=== PATIENT | female | born 1950 | race Caucasian/White ===

== ENCOUNTER → 2022-07-05 15:32 | Outpatient (BNVA) | payer MEDICARE, SELFPAY | PROVIDERS: PCP Pediatrics; Visit Provider Internal Medicine Cardiovascular Disease | DX: R07.89 Other chest pain (principal) | CPT/HCPCS: 99202 ==

== ENCOUNTER → 2022-07-24 14:06 | Outpatient (REF) | payer MEDICARE, SELFPAY ==
--- NOTE | 2022-07-24 14:12 | CA_ITS ---
Acquisition Time: 2022-07-24 14:19:39 Total Exercise Time: 00:02:17 Test Indications: CHEST PAIN Medications: Protocol: VU Max HR: 136 BPM 93% of Pred: 146 BPM Max BP: 180/060 mmHG Max Work Load: 4.1 METS Exercise stress test with exercise 2 min 17 sec of Vu stage 1 with speed reduced to 1.5 MPH, with repo isolated PAC, PVCs, and short runs of atrial tachycardia, with normotensive response to exercise, with nondiagnostic EKG for ischemia due to suboptimal test. In recovery her breathing normalized. Test reviewed with Dr Anderson. Pharmacological nuclear stress test ordered for further evaluation. Referred By: James Anderson Overread By: James Anderson
== END ==
LOC: HO.CARD 14:06
PROVIDERS: Visit Provider Internal Medicine Cardiovascular Disease
DX: R07.89 Other chest pain (principal)
CPT/HCPCS: 93017

== ENCOUNTER → 2022-08-08 09:04 | Outpatient (REF) | payer MEDICARE, SELFPAY ==
--- NOTE | ~2022-08-08 | NM_ITS ---
Myocardial perfusion study Indication: Abnormal stress test evaluate for myocardial ischemia Technique: The patient was brought in for a Lexiscan perfusion study on 08/08/2022. Patient performed low-level exercise and was injected 0.4 mg of Lexiscan intravenously. Within a minute of injection, 30 mCi of sestamibi was given intravenously. Images were obtained using the SPECT gamma camera interlaced with the gating device. Images were obtained in supine position. Resting perfusion study was performed on 08/09/2022. Patient was administered 30 mCi of sestamibi intravenously at rest. Images were then obtained in supine position. Images obtained with and without CT attenuation. Total DLP 96 mGy-cm. Images were processed with the software and compared side to side in short axis, horizontal long axis and vertical long axis views. Findings: The stress perfusion study showed non attenuated images show normal uptake of radiotracer in all segments of LV myocardium. Attenuation corrected images show mildly reduced uptake in the apex of the LV myocardium.. The gated study shows normal LV systolic function with calculated LVEF of 74%. LV cavity is normal in size. The gated study shows normal systolic wall thickening and contraction of segments. Resting study shows no change in perfusion pattern compared to stress perfusion study. Gating at rest reveals normal systolic wall motion with ejection fraction at 71%. The findings are consistent with normal myocardial perfusion. NM/NM cardiolite stress test Impression: 1. Myocardial perfusion imaging study shows normal myocardial perfusion 2. Gated LVEF is 74% 3. Transient ischemic dilatation not present EKG is nondiagnostic for ischemia
--- NOTE | 2022-08-08 09:06 | CA_ITS ---
Acquisition Time: 2022-08-08 09:20:24 Total Exercise Time: 00:02:00 Test Indications: CHEST PAIN SOB Medications: LOSATAN Protocol: LEXISCAN Max HR: 096 BPM 65% of Pred: 146 BPM Max BP: 144/090 mmHG Max Work Load: 1.0 METS Pharmacological stress test with Lexiscan injection while sitting and kicking her legs, without anginal symptoms, without arrhythmias, with normotensive response to injection, without EKG changes. Aminophylline 75mg IVP given to reverse Lexiscan injection. Nuclear images pending. Test reviewed with Dr. Blanco. Referred By: Alexa Chery Overread By: ALEXA CHERY
== END ==
LOC: HO.CARD 09:04
PROVIDERS: PCP Pediatrics; Visit Provider Nurse Practitioner Family
DX: R07.89 Other chest pain (principal); R06.02 Shortness of breath; R94.39 Abnormal result of other cardiovascular function study
CPT/HCPCS: 78452; 93017; A9500; J0280; J2785

== ENCOUNTER 2024-05-17 17:02 | Inpatient (IN) | payer MEDICARE, SELFPAY ==
--- NOTE | ~2024-05-17 | CT_ITS ---
CLINICAL HISTORY: diarrhea, abd bloating pain CT abdomen and pelvis with contrast Comparison: None Findings: No consolidation or effusion. There is marked abnormal thickening of the rectum with surrounding stranding of the distal sigmoid and rectum. No bowel obstruction or free air. Normal appendix. The liver, spleen, adrenal glands and pancreas demonstrate no acute process. Duodenal diverticulum noted. Kidneys, ureters and bladder demonstrate no acute process. Moderate diffuse atherosclerotic disease. The gallbladder is surgically absent. Uterus not visualized. No acute osseous finding. Impression: There is pronounced abnormal thickening of the rectum with significant surrounding stranding. While proctitis is likely, this will need to be closely followed to exclude malignancy. No free air or abscess. This document has been electronically signed by: Leonides Murrell MD on 05/17/2024 19:36:34
--- NOTE | 2024-05-17 17:14 | ED_ITS ---
HPI - Abdominal Pain General Chief Complaint: Abdominal Pain Stated Complaint: diarrhea, abd pain x4 days Time Seen by Provider: 05/17/24 17:14 Source: patient Mode of arrival: ambulatory Limitations: no limitations History of Present Illness ED Provider: KARO SUTTON PA-C HPI narrative: 74 year old female with pmhx significant for HTN and GERD present to the ED for evaluation of nausea, diarrhea, and abdominal pain x5 days. Patient reports feeling generally ill 5 days ago with subjective fever, chills and nausea without vomiting. The following morning, patient began to experience explosive diarrhea. She reports over 12 episodes of non bloody loose stools per day since this time. She currently lives home alone and feels weak. She is having difficulty getting up various times day/night to pass BM. No recent travel outside the [place]. She admits that she was on a course of antibiotics approximately 2 months ago for dental abscess. No other antibiotics. No known sick contacts. Surgical history includes cholecystectomy and hernia mesh repair. Denies hx of diverticulitis Related Data Home Medications ?Medication ?Instructions ?Recorded ?Confirmed ascorbic acid (vitamin C) 500 mg 1,000 mg PO DAILY 07/05/22 05/18/24 capsule doxazosin 4 mg tablet 8 mg PO BEDTIME 07/05/22 05/18/24 folic acid 800 mcg tablet 0.8 mg PO DAILY 07/05/22 05/18/24 hydralazine 50 mg tablet 50 mg PO TID 07/05/22 05/18/24 ibuprofen 800 mg tablet 800 mg PO DAILY PRN Pain 07/05/22 05/18/24 losartan 100 mg tablet 100 mg PO DAILY@0900 07/05/22 05/18/24 losartan 50 mg tablet 50 mg PO BEDTIME 07/05/22 05/18/24 magnesium 250 mg tablet 500 mg PO BEDTIME 07/05/22 05/18/24 omeprazole 20 mg capsule,delayed 20 mg PO DAILY@0630 07/05/22 05/18/24 release pyridoxine (vitamin B6) 100 mg 100 mg PO DAILY 07/05/22 05/18/24 tablet acetaminophen 500 mg tablet 1,000 mg PO BID PRN Pain 05/18/24 05/18/24 Allergies Allergy/AdvReac Type Severity Reaction Status Date / Time aspirin Allergy Intermediate Unknown Verified 05/17/24 17:19 doxycycline Allergy Intermediate Unknown Verified 05/17/24 17:19 levofloxacin Allergy Intermediate Unknown Verified 05/17/24 17:19 tramadol Allergy Intermediate Unknown Verified 05/17/24 17:19 cefadroxil Allergy Mild Unknown Verified 05/17/24 17:19 diltiazem Allergy Mild Unknown Verified 05/17/24 17:19 gabapentin Allergy Mild Unknown Verified 05/17/24 17:19 metronidazole Allergy Mild Unknown Verified 05/17/24 17:19 nifedipine Allergy Mild Unknown Verified 05/17/24 17:19 spironolactone Allergy Mild Unknown Verified 05/17/24 17:19 hydrochlorothiazide Allergy Unknown Verified 05/17/24 17:19 statins AdvReac Mild Unknown Uncoded 07/05/22 16:01 Review of Systems Review of Systems Constitutional: No fever, chills, fatigue, night sweats, weight changes ENT/Mouth: No ear pain, hearing loss, nasal congestion, sinus pain, rhinorrhea, sore throat Eyes: No eye pain, swelling, redness, vision changes, discharge Cardio: No chest pain, palpitations, ALCAZAR, orthopnea, peripheral edema Pulm: No SOB, cough, sputum, wheezing, dyspnea, hemoptysis GI: No vomiting, hematemesis, constipation, hematochezia, melena, +abdominal pain, +diarrhea, +nausea : No irregular bleeding, dysuria, frequency, urgency, hesitancy, hematuria, flank pain, urinary flow changes, urinary incontinence or retention MSK: No back pain, neck pain, joint pain, myalgias Skin: No lesions, rashes Neuro: No weakness, numbness, paresthesias, LOC, dizziness, headache Psych: No anxiety/panic, depression, SI/HI, AH/VH All other systems reviewed and are negative. [facility] Past Medical History Attestation statement: The following information was validated with the patient. Source: old records reviewed and nursing notes reviewed Medical History (Updated 05/18/24 @ 11:46 by WESTON Mcdonald) Seasonal affective disorder GERD (gastroesophageal reflux disease) Essential hypertension Surgical History History of breast surgery Hx of cholecystectomy History of hysterectomy History of abdominal surgery Family History Family History Mother Lung cancer Brain aneurysm Angina pectoris Father No problems noted. Sister AML (acute myeloblastic leukemia) Sister Heart disease Lung disease Social History Social History Alcohol intake: current Alcohol intake frequency: does not drink Patient Tobacco Use Status: Never used Tobacco Smoked in Last 30 Days: No Use of substances other than those prescribed or required for medical reasons: No Advance Directives: No Advance Directives Information Provided: Yes Do you have a plan to hurt others: No Plan Nutrition Risks: No Nutritional Risk service: No Physical Exam ED Vital Signs: Vital Signs - 24 hr 05/17/24 17:19 05/17/24 18:18 05/17/24 19:53 Temperature 99.7 F 97.3 F 97.9 F Pulse Rate 81 72 79 Respiratory Rate 16 18 16 Blood Pressure 95/49 L 136/47 L 139/49 L Pulse Oximetry 98 96 96 Oxygen Delivery Method Room Air Room Air Room Air BMI result Body Mass Index 35.0 vital signs stable, afebrile General: Well appearing, in no acute distress. Skin: Warm, dry, intact. No rashes or lesions. Head: Normocephalic, atraumatic. EENT: Hearing is intact b/l. Conjunctiva clear. PERRLA. EOM intact. Moist mucous membranes.? Neck: Supple without LAD Cardiac: Chest wall symmetric. RRR. Lungs: Normal respiratory effort without accessory muscle use. CTA bilaterally. Abdomen: soft, distended, mildly ttp along lower abdomen without rebound or guarding. normoactive bs. No cvat. Back: No midline spinous or paraspinal tenderness. No step off deformity. Ext: Upper and lower extremities atraumatic, without tenderness, deformity, swelling or erythema. strength 4/5 throughout. Neuro: AOx3. Normal speech. Ambulating with slow but steady gait assisted by cane. Course Course Course Narrative: CBC showing leukocytosis to 20.2 with left shift. Normocytic anemia. H&H stable and above transfusion threshold. No priors to compare to. Chemistry without acute electrolyte abnormality requiring intervention. BUN elevated at 20 with normal creatinine. Transaminitis. Alk phos 202, ALT 52 and AST 50. Lipase WNL. Negative COVID, flu, RSV. CT abdomen/pelvis showing marked abnormal thickening of the rectum with surrounding stranding of the distal sigmoid and rectum. No bowel obstruction, free air or abscess. > I did discuss work up results with patient. will discuss admission to medicine for IV antibiotic therapy. patient amenable to this. receiving 1L IVF. > patient reports passing bowel movement in the ED. Bowel movement was combined with urine and the sample was not sent to lab for evaluation. Will await new sample for GI panel/C diff testing. 2100 -- Discussed case with hospitalist Dr. Nunn. given generalized weakness d/t multiple episodes of loose stools with proctitis on imaging, patient will be admitted to medicine for continued IV anitbiotics. Patient has various allergies to antibiotics. Would prefer regimen of ceftriaxone and Flagyl however patient tells me she has not anaphylactic reaction to Flagyl. Discussed care with hospitalist. Will place patient on Zosyn for the time being, pending stool samples. Medical Decision Making Medical Decision Making [facility] Narrative: 74 year old female with pmhx significant for HTN and GERD present to the ED for evaluation of nausea, diarrhea, and abdominal pain x5 days. vital signs notable for low grade temp of 99.7F. she is nontoxic appearing and in NAD. on exam, soft, distended, mildly ttp along lower abdomen without rebound or guarding. normoactive bs. No cvat. Differential diagnosis includes gastroenteritis, diverticulitis, diverticulosis, cdiff, colitis No evidence of acute abdomen at this time. Moderate suspicion for acute hepatobiliary disease (including acute cholecystitis). Less likely to represent acute pancreatitis, PUD (including perforation), acute infectious processes (pneumonia, hepatitis, pyelonephritis), atypical appendicitis, vascular catastrophe, bowel obstruction or viscus perforation. Presentation not consistent with other acute, emergent causes of abdominal pain at this time. Plan: labs, UA, IVF, CT a/p, serial reassessment Differential Diagnosis Differential Diagnoses: The differential diagnosis associated with the presentation includes as above. Admission/Observation Consideration of admission/observation: Escalation of care including admission/observation considered Patient admitted to medicine for proctitis with likely c diff Consult Healthcare Provider Management of the patient was discussed with: Hospitalist (Dr. Nunn) Lab Data [facility] Lab Attestation statement: I reviewed the patient's lab results. as above. 05/17/24 17:33 05/17/24 17:33 Labs: Lab Results 05/17/24 Range/Units 17:33 WBC 20.2 H (4.8-10.8) X10*3/uL RBC 3.77 L (4.20-5.50) X10*6/uL Hgb 11.7 L (12.0-16.0) g/dl Hct 33.9 L (37.0-47.0) % MCV 89.9 (80.0-98.0) fL MCH 31.0 (27.0-33.0) pg MCHC 34.5 (31.0-35.0) g/dl RDW 12.1 (11.0-16.0) % Plt Count 282 (160-400) X10*3/uL MPV 10.4 (9.4-12.3) fL Immature Gran % (Auto) 0.7 H (0.0-0.4) % Neut % (Auto) 88.2 H (45-73) % Lymph % (Auto) 3.7 L (20-40) % [place] % (Auto) 7.3 (2-11) % Eos % (Auto) 0.0 (0-4) % Baso % (Auto) 0.1 (0-2) % Lymph # (Auto) 0.7 L (1.2-4.9) X10*3/uL [place] # (Auto) 1.5 H (0.1-1.2) X10*3/uL Eos # (Auto) 0.0 (0.0-0.4) X10*3/uL Baso # (Auto) 0.0 (0.0-0.2) X10*3/uL Abs Immat Gran (auto) 0.15 H (0.00-0.03) X10*3/uL Absolute Neuts (auto) 17.8 H (2.0-8.3) x10*3/uL Absolute Nucleated RBC 0.000 (0.0-0.012) X10*3/uL Nucleated RBC % (auto) 0.0 (0.0-0.2) /100WBC Sodium 136 (135-145) mmol/L Potassium 3.7 (3.3-5.1) mmol/L Chloride 105 (96-108) mmol/L Carbon Dioxide 24 (22-29) mmol/L Anion Gap 11 L (12-20) BUN 20 H (9-16) mg/dL Creatinine 0.88 (0.5-1.4) mg/dL Estim Creat Clear Calc 57.8 Estimated GFR > 60 Random Glucose 109 (60-115) mg/dL Calcium 10.1 (8.4-10.2) mg/dL Magnesium 1.8 (1.6-2.6) mg/dL Total Bilirubin 1.0 (0.0-1.0) mg/dL AST 50 H (5-31) U/L ALT 52 H (0-31) U/L Alkaline Phosphatase 202 H (39-117) U/L Total Protein 6.6 (6.5-8.0) g/dL Albumin 3.6 (3.5-5.0) g/dL Lipase 26 (8-78) U/L Influenza Type A (PCR) NEGATIVE (Negative) Influenza Type B (PCR) NEGATIVE (Negative) RSV RNA Qual (PCR) NEGATIVE (Negative) SARS-CoV-2 RNA (RT-PCR) NEGATIVE (Negative) Independent Interpretation I performed an independent interpretation of an: CT Scan Interpretation: CT a/p with stranding around sigmoid colon Radiology Impression Discussion of test interpretation with radiology: I have reviewed the radiologist's reading. Radiologist Impression: CLINICAL HISTORY: diarrhea, abd bloating pain CT abdomen and pelvis with contrast Comparison: None Findings: No consolidation or effusion. There is marked abnormal thickening of the rectum with surrounding stranding of the distal sigmoid and rectum. No bowel obstruction or free air. Normal appendix. The liver, spleen, adrenal glands and pancreas demonstrate no acute process. Duodenal diverticulum noted. Kidneys, ureters and bladder demonstrate no acute process. Moderate diffuse atherosclerotic disease. The gallbladder is surgically absent. Uterus not visualized. No acute osseous finding. Impression: There is pronounced abnormal thickening of the rectum with significant surrounding stranding. While proctitis is likely, this will need to be closely followed to exclude malignancy. No free air or abscess. This document has been electronically signed by: Leonides Murrell MD on 05/17/2024 19:36:34 External Record Review External record reviewed: Inpatient record Prescription Management I considered prescription management with: Pain Medication and Antibiotic Social Determinants Patient?s care significantly limited by Social Determinants of Health including: Other Social Determinant of Health Medications Administered Generic Name Dose Route Start Last Admin Trade Name Freq PRN Reason Stop Dose Admin Acetaminophen 650 mg 05/17/24 22:20 05/18/24 09:07 Acetaminophen 325 Mg Tablet PO 650 mg Q6H PRN Administration Pain, Mild 1-3,fever,headache Ascorbic Acid 1,000 mg 05/18/24 10:45 05/18/24 11:15 Ascorbic Acid 500 Mg Tablet PO 1,000 mg DAILY TAMELA Administration Enoxaparin Sodium 40 mg 05/17/24 21:45 05/18/24 02:52 Enoxaparin Sodium 40 Mg/0.4 Ml Syringe SUBCUT 40 mg Q24H TAMELA Administration Lactated Ringer's 1,000 mls @ 100 mls/hr 05/17/24 22:15 05/18/24 08:28 Lr IVCONT 100 mls/hr .Q10H TAMELA Administration Losartan Potassium 100 mg 05/18/24 10:35 05/18/24 11:14 Losartan Potassium 50 Mg Tablet PO Not Given DAILY@0900 [facility] Protocol Sodium Chloride 3 ml 05/18/24 00:00 05/18/24 08:28 0.9 % Sodium Chloride Flush 3 Ml Syringe IVFLUSH 3 ml QSHIFT [facility] Administration Vancomycin HCl 125 mg 05/17/24 22:45 05/18/24 10:40 Vancomycin Hcl 125 Mg Capsule PO 125 mg Q6H TAMELA Administration Discontinued Medications Generic Name Dose Route Start Last Admin Trade Name Freq PRN Reason Stop Dose Admin Enoxaparin Sodium 40 mg 05/17/24 21:30 05/17/24 23:41 Enoxaparin Sodium 40 Mg/0.4 Ml Syringe SUBCUT Not Given Q24H [facility] Sodium Chloride 1,000 mls @ 999 mls/hr 05/17/24 19:45 05/17/24 21:23 Ns IV 05/17/24 20:45 Infused .Q1H1M TAMELA Infusion Piperacillin Sod/Tazobactam 50 mls @ 100 mls/hr 05/17/24 20:23 05/17/24 21:53 Sod 3.375 gm/ Sodium Chloride IV 05/17/24 20:52 Infused ONCE ONE Infusion Iohexol 100 ml 05/17/24 19:00 05/17/24 19:02 Iohexol 350 Mg/Ml 100 Ml Infus..Btl IV 05/17/24 19:01 85 ml ONCE ONE Administration Critical Care Time Critical Care Time Critical Care Time: Yes Total Critical Care Time: 31 Attestation: Critical care time in the amount of 31 minutes has been provided to the patient in terms of direct patient care, frequent reevaluation, consultation with hospitalist, review and interpretation of medical data and results, and management of potentially life-threatening conditions. This is all outside of any medical procedures. Discharge Plan Discharge Clinical Impression: Acute proctitis, C. difficile diarrhea Patient Disposition: Admitted As Inpatient
[2024-05-17 17:19] VITALS: BP 95/49; PULSE 81; RESP 16; TEMP 37.6; O2SAT 98; BMI 35.0
[2024-05-17 17:37] LABS: MANUAL DIFF FLAG NO
[2024-05-17 17:38] LABS: Basophils Percent Auto 0.1 % (0-2); Hematocrit 33.9 % (37.0-47.0); Hemoglobin 11.7 g/dl (12.0-16.0); Imm Gran Abs Auto 0.15 X10*3/uL (0.00-0.03); Imm Gran Pct Auto 0.7 % (0.0-0.4); Lymphocytes Absolute Auto 0.7 X10*3/uL (1.2-4.9); Lymphocytes Percent Auto 3.7 % (20-40); Mean Corpuscular HGB Conc 34.5 g/dl (31.0-35.0); Mean Corpuscular Volume 89.9 fL (80.0-98.0); Mean Platelet Volume 10.4 fL (9.4-12.3); Monocytes Absolute Auto 1.5 X10*3/uL (0.1-1.2); Monocytes Percent Auto 7.3 % (2-11); Neutrophils Absolute Auto 17.8 x10*3/uL (2.0-8.3); Neutrophils Percent Auto 88.2 % (45-73); Platelet Count 282 X10*3/uL (160-400); Red Blood Count 3.77 X10*6/uL (4.20-5.50); Red Cell Distribution Width 12.1 % (11.0-16.0); White Blood Count 20.2 X10*3/uL (4.8-10.8)
--- OUTSIDE RECORDS SUMMARY | 2024-05-17 17:39 | XMS_ITS | Clinical Summary ---
Author Organization [facility], Address [address] [place] [address] [place] [address] Phone Care Team Providers Care Returning Officer Name Role Phone Noe Peter MD Primary Care Provider [phone] Allergies Active Allergy Reactions Criticality Noted Date Comments Amitriptyline 02/25/2020 Amlodipine Other (see comments) Medium 02/25/2020 Aspirin 07/14/2013 Cefadroxil 02/25/2020 Diltiazem Other (see comments) 02/25/2020 Doxycycline Other (see comments) 06/29/2014 Gabapentin 02/25/2020 Hydrochlorothiazide Other (see comments) High 2016 Hydrochlorothiazide W-Triamterene 09/13/2022 Lactose Other (see comments),Diarrhea 02/25/2020 Levofloxacin Other (see comments),Rash High 12/21/2018 Lisinopril Other (see comments) 07/14/2013 Metronidazole Other (see comments) 02/25/2020 Oxycodone Other (see comments) High 02/25/2020 Rosuvastatin Other (see comments) Medium 02/25/2020 Spironolactone 02/25/2020 Statins 02/25/2020 Sulfa Antibiotics 02/25/2020 Sulfacetamide 02/25/2020 Tramadol 02/25/2020 Medications Acetaminophen 500 MG capsule Take 1,500 mg by mouth every night Active magnesium oxide (MAG-OX) 400 MG tablet Take 400 mg by mouth 2 (two) times a day Active omeprazole (PriLOSEC) [address] capsule Take 20 mg by mouth 1 (one) time each day Active Cholecalciferol (Vitamin D) 50 MCG (1999 UT) capsule Take 4,000 Units by mouth 3 (three) times a week Active clonazePAM (KlonoPIN) 0.5 MG tablet TAKE 1 TABLET TWICE A DAY BY ORAL ROUTE NEEDED. 05/05/19 22 Active ibuprofen (ADVIL,MOTRIN) 800 MG tablet 03/02/20 22 Active hydrALAZINE 50 MG tablet TAKE 1 TABLET BY MOUTH THREE TIMES A DAY DIRECTED FOR 30 DAYS 07/21/19 23 Active doxazosin (CARDURA) 4 MG tabletIndication s:Essential hypertension TAKE 2 TABLETS (8 MG TOTAL) BY MOUTH EVERY NIGHT 180 tablet 3 01/10/20 24 025 Active losartan (COZAAR) 50 MG tabletIndication s:Essential hypertension TAKE 1 TABLET (50 MG TOTAL) BY MOUTH 1 (ONE) TIME EACH DAY IN THE EVENING 90 tablet 1 04/11/19 25 Active losartan (COZAAR) 100 MG tabletIndication s:Essential hypertension TAKE 1 TABLET 100MG DAILY IN ADDITION TO THE 50MG 90 tablet 3 04/28/19 25 Active losartan (COZAAR) 100 MG tabletIndication s:Essential hypertension Take 1 tablet (100 mg total) by mouth 1 (one) time each day TAKE 1 TABLET 100MG DAILY IN ADDITION TO THE 50MG 90 tablet 3 04/30/19 24 025 Discontinued Active Problems Problem Noted Date Diagnosed Date Chronic kidney disease, stage 2 (mild) Diastolic dysfunction Essential hypertension Hypercalcemia Hyperparathyroidism Pure hypercholesterolemia Renal stone Vitamin D deficiency Resolved Problems Problem Noted Date Diagnosed Date Resolved Date Abnormal liver function 12/31 Encounters Date Type Department Care Team Description 04/27/2024 Refill [facility] [address] [place] [address] Israel Herrera MD Essential hypertension 04/11/2024 Refill [facility], [address] [place] [address] Israel Herrera MD Essential hypertension from Last 3 Months Immunizations Name Administration Dates Next Due Influenza (IM) Preservative Free 01/19/2015,12/31 Influenza Split High Dose Pr eservative Free IM 02/10/2019,12/26/2017,12/08/2016,04/06 Influenza, Unspecified 12/16/2019 Pneumococcal Conjugate 13-Valent 04/06/2016 Pneumococcal Polysaccharide 12/16/2013, 4 Td 05/03/2018 Tdap 10/16/2008 Family History Medical History Relation Comments Arthritis Brother Alcohol abuse Father Diabetes Father Arthritis Mother Cerebral aneurysm Mother ruptured Lung cancer Mother Factor V Leiden deficiency Sister Leukemia Sister acute myeloid Lung cancer Sister Relation Status Comments Brother Father Mother Sister Social History Tobacco Use Types Packs/Day Years Used Date Smoking Tobacco: Former Comments Unknown Sex and Gender Information Value Date Recorded Sex Assigned at Not on file Legal Sex Female 10:13 AM EST Gender Identity Not on file Sexual Orientation Not on file Last Filed Vital Signs Vital Sign Reading Time Taken Comments Blood Pressure 140/70 12/17/2023 2:01 PM EDT Pulse - - Temperature - - Respiratory Rate - - Oxygen Saturation - - Inhaled Oxygen Concentration - - Weight - - Height - - Body Mass Index - - Plan of Treatment Upcoming Encounters Date Type Department Care Team (Late st Contact Info) Description 08/18/2024 2:45 PM EDT Office Visit [facility], [address] [place] [address] Israel Herrera MD [address] [place] [address] [place] [address] Health Maintenance Due Date Last Done Comments Influenza Vaccine (#1) 2023 0, 02/10/2019, 12/26/2017, Additional history exists Pneumococcal Vaccine: 65+ Years Completed 04/06/2016, 12/16/2013, 07/14/2013 Hepatitis B Vaccine Aged Out No longe r eligible based on patient's age to complete this topic Insurance MEDICARE [facility] Care Teams Returning Officer Relationship Specialty Start Date End Date Noe Peter MD [address] [phone] PCP - General Internal Medicine 02/11/20
--- OUTSIDE RECORDS SUMMARY | 2024-05-17 17:39 | XMS_ITS | Encounter Summary ---
Author Organization [facility] Address [address] [address] Phone Care Team Providers Care Peripheral Equipment Operator Name Role Phone Noe Peter MD Primary Care Provider Encounter Details Date Type Department Care Team (Late st Contact Info) Description 05/24/2023 Documentation Only [facility] [address] [place] [address] Shu Brown [place] [address] [place] [phone] Social History Tobacco Use Types Packs/Day Years Used Date Smoking Tobacco: Former Comments Unknown Sex and Gender Information Value Date Recorded Sex Assigned at Not on file Legal Sex Female 10:13 AM EST Gender Identity Not on file Sexual Orientation Not on file documented as of this encounter Plan of Treatment Upcoming Encounters Date Type Department Care Team (Late st Contact Info) Description 08/18/2024 2:45 PM EDT Office Visit [facility] [address] [place] [phone] Israel Herrera MD [address] [place] [address] [place] [address] documented as of this encounter Visit Diagnoses Not on filedocumented in this encounter Care Teams Peripheral Equipment Operator Relationship Specialty Start Date End Date Noe Peter MD [address] [phone] PCP - General Internal Medicine 02/11/20 documented as of this encounter
--- OUTSIDE RECORDS SUMMARY | 2024-05-17 17:39 | XMS_ITS | Encounter Summary ---
Author Organization [facility] Address [address] [address] Phone Care Team Providers Care Health Education Teacher Name Role Phone Noe Peter MD Primary Care Provider [phone] Encounter Details Date Type Department Care Team (Late st Contact Info) Description 06/13/2022 Documentation Only [facility] [address] [place] [address] Israel Herrera MD [address] [place] [address] [place] [phone] Social History Tobacco Use Types Packs/Day Years [...] Visit [facility] [address] [place] [phone] Israel Herrera MD [address] [place] [address] [place] [phone] documented as of this encounter Visit Diagnoses Not on filedocumented in this encounter Care Teams Health Education Teacher Relationship Specialty Start Date End Date Noe Peter MD [address] [phone] PCP - General Internal Medicine 02/11/20 documented as of this encounter
--- OUTSIDE RECORDS SUMMARY | 2024-05-17 17:39 | XMS_ITS | Encounter Summary ---
Author Organization [facility] [place], Address [address] [address] Phone Care Team Providers Care Assistant Customer Service Manager Name Role Phone Noe Peter MD Primary Care Provider [phone] Reason for Visit * Reason Comments Med Refill Encounter Details Date Type Department Care Team (Late Contact Info) Description 04/21/2023 Refill [facility] [address] [place] [phone] Israel Herrera MD [address] [place] [address] [place] [address] Essential hypertension Social History Tobacco Use Types Packs/Day Years Used Date Smoking Tobacco: Former Comments Unknown Sex and Gender Information Value Date Recorded Sex Assigned at Not on file Legal Sex Female 10:13 AM EST Gender Identity Not on file Sexual Orientation Not on file documented as of this encounter Plan of Treatment Upcoming Encounters Date Type Department Care Team (Late Contact Info) Description 08/18/2024 2:45 PM EDT Office Visit [facility], [address] [place] [phone] Israel Herrera MD [address] [place] [address] [place] [address] documented as of this encounter Visit Diagnoses Diagnosis Essential hypertension documented in this encounter Care Teams Assistant Customer Service Manager Relationship Specialty Start Date End Date Noe Peter MD [address] [address] PCP - General Internal Medicine 02/11/20 documented as of this encounter
--- OUTSIDE RECORDS SUMMARY | 2024-05-17 17:39 | XMS_ITS | Encounter Summary ---
Author Organization [facility] Address [address] [address] Phone Care Team Providers Care Temple Meat Cutter Name Role Phone Noe Peter MD Primary Care Provider [phone] Reason for Visit * Reason Comments Med Refill Encounter Details Date Type Department Care Team (Late Contact Info) Description 04/27/2024 Refill [facility] [address] [place] [address] Israel Herrera MD [address] [place] [address] [place] [address] Essential hypertension Social History Tobacco [...] Visit [facility] [address] [place] [address] Israel Herrera MD [address] [place] [address] [place] [address] documented as of this encounter Visit Diagnoses Diagnosis Essential hypertension documented in this encounter Care Teams Temple Meat Cutter Relationship Specialty Start Date End Date Noe Peter MD [address] [address] PCP - General Internal Medicine 02/11/20 documented as of this encounter
--- OUTSIDE RECORDS SUMMARY | 2024-05-17 17:39 | XMS_ITS | Encounter Summary ---
Author Organization [facility] [place], Address [address] [address] Phone Care Team Providers Care Mold Filling Operator Name Role Phone Noe Peter MD Primary Care Provider [phone] Encounter Details Date Type Department Care Team (Late st Contact Info) Description 07/13/2021 Documentation Only [facility] [address] [place] [phone] Ramses Bond MD Social History Tobacco Use Types Packs/Day Years [...] Visit [facility] [address] [place] [phone] Israel Herrera MD [address] [place] [address] [place] [phone] documented as of this encounter Visit Diagnoses Not on filedocumented in this encounter Care Teams Mold Filling Operator Relationship Specialty Start Date End Date Noe Peter MD [address] [address] PCP - General Internal Medicine 02/11/20 documented as of this encounter
[2024-05-17 17:51] LABS: Alanine Aminotransferase 52 U/L (0-31); Albumin Level 3.6 g/dL (3.5-5.0); Alkaline Phosphatase 202 U/L (39-117); Anion Gap 11 (12-20); Aspartate Amino Transferase 50 U/L (5-31); Blood Urea Nitrogen 20 mg/dL (9-16); Calcium 10.1 mg/dL (8.4-10.2); Carbon Dioxide 24 mmol/L (22-29); Chloride 105 mmol/L (96-108); Creatinine Clr Calc Pharmacy 57.8; Estimated Glomerular Filt Rate > 60; Glucose Random 109 mg/dL (60-115); Lipase 26 U/L (8-78); Magnesium 1.8 mg/dL (1.6-2.6); Potassium 3.7 mmol/L (3.3-5.1); Sodium 136 mmol/L (135-145); Total Protein 6.6 g/dL (6.5-8.0)
[2024-05-17 18:18] VITALS: BP 136/47; PULSE 72; RESP 18; TEMP 36.3; O2SAT 96
[2024-05-17 18:18] LABS: Influenza A PCR NEGATIVE (Negative); Influenza B PCR NEGATIVE (Negative); Resp Syncy Virus RNA Qual PCR NEGATIVE (Negative); SARS COV2 PCR INHOUSE NEGATIVE (Negative)
[2024-05-17] MEDS: iohexoL 350 MG/ML 100 ML INFUS..BTL IV (19:02)
[2024-05-17] MEDS: 0.9 % Sodium Chloride 1,000 ML 999 ML IV (19:52)
[2024-05-17 19:53] VITALS: BP 139/49; PULSE 79; RESP 16; TEMP 36.6; O2SAT 96
--- NOTE | 2024-05-17 20:31 | PC.NURSE ---
per Mahi ONTIVEROS no blood cultures before admin of iv abx.
[2024-05-17] MEDS: Piperacillin Sodium/Tazobactam 3.375 GM in 0.9 % Sodium Chloride 50 ML IV (21:23)
--- NOTE | 2024-05-17 21:29 | P.HPHOSP_ITS ---
History of Present Illness Date of Service: 05/17/24 <WESTON Hernandez - Last Filed: 05/17/24 22:37> Attending physician on admission: Eugene Nunn <WESTON Hernandez - Last Filed: 05/17/24 22:37> Chief Complaint: Abdominal pain <WESTON Hernandez - Last Filed: 05/17/24 22:37> Pt is a 74-year-old female with a PMH significant for?HTN, GERD, and seasonal affective disorder who presents to the ED with?severe diarrhea and abdominal cramping x4 days. Pt reports symptoms began on Sunday night when she experienced severe abdominal cramping, fever, chills. Later that night pt began having intractable and rapid diarrhea that was ?like [place] falls?. Measured fever as high as 102 at home. Pt reports took Tylenol, Imodium, and drank water and Gatorade. Attempted to eat 1 cracker but almost immediately experienced nausea. Has otherwise been unable to tolerate solid food. Pt reports has been feeling weak and fatigued. Notes that fever broke yesterday. Denies chest pain/pressure, palpitations. Denies shortness or breath or difficulty breathing. States has lost 5 lb since diarrhea began, but no unintended weight loss prior to that. Of note, pt reports recently had a 5 day course of amoxicillin for a dental procedure 3-4 weeks ago. In the ED pt with soft BP as low as 95/49, vitals otherwise stable and WNL. Labs were significant for leukocytosis of 20.2, H&H 11.7/33.9, AST 50, ALT 52, and alk-phos 202. GI panel pending. C diff gene positive, toxin a and B still pending. Tested negative for flu, COVID, and RSV. CT?of abdomen and pelvis found pronounced abnormal thickening of rectum with significant surrounding stranding, likely proctitis but malignancy not excluded. Pt was treated with IVF and Zosyn. Pt will be admitted to the hospital for treatment and further evaluation of intractable abdominal pain and diarrhea concerning for acute proctitis in the setting of C diff infection. <WESTON Hernandez - Last Filed: 05/17/24 22:37> Review of Systems 2 Review of Systems: Negative except for that which is stated in the HPI <WESTON Hernandez - Last Filed: 05/17/24 22:37> [facility] Medical History: Medical History (Updated 05/18/24 @ 02:23 by Eugene uNnn MD) Seasonal affective disorder GERD (gastroesophageal reflux disease) Essential hypertension <WESTON Hernadnez - Last Filed: 05/17/24 22:37> Family History: Family History Mother Lung cancer Brain aneurysm Angina pectoris Father No problems noted. Sister AML (acute myeloblastic leukemia) Sister Heart disease Lung disease <WESTON Hernandez - Last Filed: 05/17/24 22:37> Surgical History: Surgical History History of breast surgery Hx of cholecystectomy History of hysterectomy History of abdominal surgery <WESTON Hernandez - Last Filed: 05/17/24 22:37> Social History: Social History Alcohol intake: current Alcohol intake frequency: does not drink Patient Tobacco Use Status: Never used Tobacco Smoked in Last 30 Days: No Use of substances other than those prescribed or required for medical reasons: No Advance Directives: No Advance Directives Information Provided: Yes Do you have a plan to hurt others: No Plan <WESTON Hernandez - Last Filed: 05/17/24 22:37> Meds Allergies/Adverse reactions: Allergies Allergy/AdvReac Type Severity Reaction Status Date / Time aspirin Allergy Intermediate Unknown Verified 05/17/24 17:19 doxycycline Allergy Intermediate Unknown Verified 05/17/24 17:19 levofloxacin Allergy Intermediate Unknown Verified 05/17/24 17:19 tramadol Allergy Intermediate Unknown Verified 05/17/24 17:19 cefadroxil Allergy Mild Unknown Verified 05/17/24 17:19 diltiazem Allergy Mild Unknown Verified 05/17/24 17:19 gabapentin Allergy Mild Unknown Verified 05/17/24 17:19 metronidazole Allergy Mild Unknown Verified 05/17/24 17:19 nifedipine Allergy Mild Unknown Verified 05/17/24 17:19 spironolactone Allergy Mild Unknown Verified 05/17/24 17:19 hydrochlorothiazide Allergy Unknown Verified 05/17/24 17:19 statins AdvReac Mild Unknown Uncoded 07/05/22 16:01 <WESTON Hernandez - Last Filed: 05/17/24 22:37> Active Medications: Current Medications Acetaminophen (Acetaminophen 325 Mg Tablet) 650 mg PO Q6H PRN PRN Reason: Pain, Mild 1-3,fever,headache Al Hydroxide/Mg Hydroxide (Magnesium Hydrox/Alum Hydrox 30 Ml Oral.Susp) 30 ml PO Q4H PRN PRN Reason: Heartburn Calcium Carbonate (Calcium Carbonate 750 Mg Tab.Chew) 750 mg PO Q4H PRN PRN Reason: Heartburn Enoxaparin Sodium (Enoxaparin Sodium 40 Mg/0.4 Ml Syringe) 40 mg SUBCUT Q24H TAMELA Magnesium Hydroxide (Milk Of Magnesia 30 Ml Oral.Susp) 30 ml PO DAILY PRN PRN Reason: Constipation Melatonin (Melatonin 3 Mg Tablet) 6 mg PO BEDTIME PRN PRN Reason: Insomnia Sodium Chloride (0.9 % Sodium Chloride Flush 3 Ml Syringe) 3 ml IVFLUSH QSHIFT TAMELA <WESTON Hernandez - Last Filed: 05/17/24 22:37> Home medications: Home Medications ?Medication ?Instructions ?Recorded ?Confirmed ?Last Taken ?Type acetaminophen 650 mg 650 mg PO Q12H PRN 07/05/22 07/05/22 Unknown History tablet,extended release (Tylenol 8 Hour) ascorbic acid (vitamin C) 500 mg 500 mg PO DAILY 07/05/22 07/05/22 Unknown History capsule cholecalciferol (vitamin D3) 25 25 mcg PO DAILY 07/05/22 07/05/22 Unknown History mcg (1,000 unit) capsule doxazosin 4 mg tablet 2 mg PO BEDTIME 07/05/22 07/05/22 Unknown History folic acid 800 mcg tablet 0.8 mg PO DAILY 07/05/22 07/05/22 Unknown History hydralazine 50 mg tablet 50 mg PO TID 07/05/22 07/05/22 Unknown History ibuprofen 800 mg tablet 800 mg PO Q8H 07/05/22 07/05/22 Unknown History losartan 100 mg tablet See Rx Instructions PO ONCE 07/05/22 07/05/22 Unknown History losartan 50 mg tablet 50 mg PO BEDTIME 07/05/22 07/05/22 Unknown History magnesium 250 mg tablet 500 mg PO DAILY 07/05/22 07/05/22 Unknown History omeprazole 20 mg capsule,delayed 20 mg PO DAILY 07/05/22 07/05/22 Unknown History release pyridoxine (vitamin B6) 100 mg 100 mg PO DAILY 07/05/22 07/05/22 Unknown History tablet <WESTON Hernandez - Last Filed: 05/17/24 22:37> Physical Exam 2 Vital Signs and Narrative: Vital Signs: Last Vital Signs Temp 97.9 F 05/17/24 19:53 Pulse 79 05/17/24 19:53 Resp 16 05/17/24 19:53 BP 139/49 L 05/17/24 19:53 Pulse Ox 96 05/17/24 19:53 O2 Del Method Room Air 05/17/24 19:53 BMI result Body Mass Index 35.0 <WESTON Hernandez - Last Filed: 05/17/24 22:37> General: AOx3, no acute distress Resp: CTA bilaterally CVS: S1, S2, RRR GI: Abdomen soft with mild distention, suprapubic and LLQ tenderness. Bowel sounds hyperactive Skin: Warm, dry Neuro: Cranial nerves II-XII grossly intact bilaterally. Motor grossly intact bilaterally Extremities: No edema Psych: Appropriate affect <WESTON Hernandez - Last Filed: 05/17/24 22:37> Results Labs CBC and Chem 7: 05/17/24 17:33 05/17/24 17:33 <WESTON Hernandez - Last Filed: 05/17/24 22:37> Labs: Laboratory Results - last 24 hr 05/17/24 17:33 MCV 89.9 MCH 31.0 MCHC 34.5 RDW 12.1 Plt Count 282 MPV 10.4 Immature Gran % (Auto) 0.7 H Neut % (Auto) 88.2 H Lymph % (Auto) 3.7 L [place] % (Auto) 7.3 Eos % (Auto) 0.0 Baso % (Auto) 0.1 Lymph # (Auto) 0.7 L [place] # (Auto) 1.5 H Eos # (Auto) 0.0 Baso # (Auto) 0.0 Abs Immat Gran (auto) 0.15 H Absolute Neuts (auto) 17.8 H Absolute Nucleated RBC 0.000 Nucleated RBC % (auto) 0.0 Anion Gap 11 L Estim Creat Clear Calc 57.8 Estimated GFR > 60 Random Glucose 109 Calcium 10.1 Magnesium 1.8 Total Bilirubin 1.0 AST 50 H ALT 52 H Alkaline Phosphatase 202 H Total Protein 6.6 Albumin 3.6 Lipase 26 Influenza Type A (PCR) NEGATIVE Influenza Type B (PCR) NEGATIVE RSV RNA Qual (PCR) NEGATIVE SARS-CoV-2 RNA (RT-PCR) NEGATIVE <WESTON Hernandez - Last Filed: 05/17/24 22:37> Assessment and Plan (1) C. difficile diarrhea: Status: Acute <WESTON Hernandez - Last Filed: 05/17/24 22:37> Pt is a 74-year-old female with a PMH significant for?HTN, GERD, and seasonal affective disorder who presents to the ED with?severe diarrhea and abdominal cramping x4 days. Pt will be admitted to the hospital for treatment and further evaluation of intractable abdominal pain and diarrhea concerning for acute proctitis in the setting of C diff infection. Intractable diarrhea and abdominal pain Symptoms ongoing x5 days CT showing pronounced abdominal thickening in rectum with significant surrounding stranding, likely proctitis though malignancy not excluded No sepsis: Leukocytosis likely reactionary, no tachypnea, fever, or tachycardia Pt empirically covered with Zosyn in the ED IVF Check GI panel, C diff C diff gene positive, toxin a and B pending Will empirically treat with vancomycin 125 mg q.6 p.o. Transaminitis Likely secondary to acute proctitis HTN Continue doxazosin, hydralazine, and losartan GERD Continue PPI Full Code Attending:? DVT Prophylaxis: Lovenox Pt will require a hospitalization of at least two nights for treatment of?intractable abdominal pain and diarrhea concerning for acute proctitis in the setting of C diff infection. <WESTON Hernandez - Last Filed: 05/17/24 22:37> Pt is a 74-year-old female with a PMH significant for?HTN, GERD, and seasonal affective disorder who presents to the ED with?severe diarrhea and abdominal cramping x4 days. Pt will be admitted to the hospital for treatment and further evaluation of intractable abdominal pain and diarrhea concerning for acute proctitis in the setting of C diff infection. C diff diarrhea, severe, initial encounter Will empirically treat with vancomycin 125 mg q.6 p.o. ID consult Transaminitis Likely secondary to above HTN Continue doxazosin, hydralazine, and losartan GERD Continue PPI Full Code Attending:? DVT Prophylaxis: Lovenox Pt will require a hospitalization of at least two nights for treatment of?intractable abdominal pain and diarrhea concerning for acute proctitis in the setting of C diff infection. <Eugene Nunn MD - Last Filed: 05/18/24 02:24> Quality Stroke Does the patient have a stroke diagnosis?: No <WESTON Hernandez - Last Filed: 05/17/24 22:37> VTE Prior VTE?: No <WESTON Hernandez - Last Filed: 05/17/24 22:37> VTE Risk Level:: Medical - moderate - high <WESTON Hernandez - Last Filed: 05/17/24 22:37> VTE Device Contraindication: Treatment Not Indicated <WESTON Hernandez - Last Filed: 05/17/24 22:37> VTE Drug Contraindication: N/A - Med Ordered <WESTON Hernandez - Last Filed: 05/17/24 22:37>
[2024-05-17 22:25] LABS: CDiff Gene PCR POSITIVE (Negative)
[2024-05-17 22:41] VITALS: BP 140/49; PULSE 75; RESP 16; TEMP 37.1; O2SAT 93
[2024-05-17 23:19] LABS: CDiff Toxin Positive (Negative)
[2024-05-17 23:20] LABS: CDIFF Internal ctrl Dots and bkg OK (V)
[2024-05-18] MEDS: Lactated Ringers 1,000 ML 100 ML IVCONT ×4 (00:05→23:57)
[2024-05-18] MEDS: vancomycin HCL 125 MG CAPSULE PO ×5 (00:05→22:42)
--- NOTE | 2024-05-18 00:34 | PC.NURSE ---
pt educated on +cdiff test & treatment with gayle, answered all questions pt verbalizes understanding and agreement to tx however states to speak with MD. as well as requests to hold off on lovenox at this time and states she needs more time to make decision to receive this med. educated on risks of not receiving lovenox and it +effects. pt verbalizes understanding and states she has previously thoroughly researched this medication. pt helped to commode at this time. MD aware pt would like to speak with him. call gaxiola within reach.
[2024-05-18] MEDS: Enoxaparin Sodium 40 MG/0.4 ML SYRINGE SUBCUT ×2 (02:52→21:09)
--- NOTE | 2024-05-18 02:52 | PC.NURSE ---
pt states she is in agreement with lovenox injection, given per may. pt reports 6/ diffused abd pain and requested tylenol, states this is helpful for her pain and does not request anything stronger at this time. pt appears comfortable, had liquid BM, assisted back to stretcher. call gaxiola within reach.
[2024-05-18] MEDS: Acetaminophen 325 MG TABLET 650 MG PO ×2 (02:53→09:07)
--- NOTE | 2024-05-18 07:43 | P.PNIM_ITS ---
Subjective Subjective Date of Service: 05/18/24 Interval History: f/u on cdif colitis persistent diarrhea, and some abdominal discomfort Physical Exam 2 Vital Signs: Vital Signs: Last Vital Signs Temp 98.7 F 05/17/24 22:41 Pulse 75 05/17/24 22:41 Resp 16 05/17/24 22:41 BP 140/49 H 05/17/24 22:41 Pulse Ox 93 05/17/24 22:41 O2 Del Method Room Air 05/17/24 22:41 BMI result Body Mass Index 35.0 Const: Other: General: AO X 3, no acute distress Resp: CTA bilateral CVS: S1,S2,RRR GI: +BS, , slight distention and tenderness Skin: No rash Neuro: motor grossly intact Psych: appropriate affect Objective Data Active Medications Acetaminophen (Acetaminophen 325 Mg Tablet) 650 mg PO Q6H PRN PRN Reason: Pain, Mild 1-3,fever,headache Last Admin: 05/18/24 02:53 Dose: 650 mg Documented By: MIN Al Hydroxide/Mg Hydroxide (Magnesium Hydrox/Alum Hydrox 30 Ml Oral.Susp) 30 ml PO Q4H PRN PRN Reason: Heartburn Calcium Carbonate (Calcium Carbonate 750 Mg Tab.Chew) 750 mg PO Q4H PRN PRN Reason: Heartburn Enoxaparin Sodium (Enoxaparin Sodium 40 Mg/0.4 Ml Syringe) 40 mg SUBCUT Q24H [facility] Last Admin: 05/18/24 02:52 Dose: 40 mg Documented By: MIN Lactated Ringer's (Lr) 1,000 mls @ 100 mls/hr IVCONT .Q10H [facility] Last Admin: 05/18/24 00:05 Dose: 100 mls/hr Documented By: MIN Magnesium Hydroxide (Milk Of Magnesia 30 Ml Oral.Susp) 30 ml PO DAILY PRN PRN Reason: Constipation Melatonin (Melatonin 3 Mg Tablet) 6 mg PO BEDTIME PRN PRN Reason: Insomnia Sodium Chloride (0.9 % Sodium Chloride Flush 3 Ml Syringe) 3 ml IVFLUSH QSHIFT [facility] Last Admin: 05/18/24 00:38 Dose: Not Given Documented By: MIN Non-Admin Reason: IV Running Vancomycin HCl (Vancomycin Hcl 125 Mg Capsule) 125 mg PO Q6H [facility] Last Admin: 05/18/24 06:26 Dose: 125 mg Documented By: MIN Labs 05/17/24 17:33 05/17/24 17:33 Labs: Laboratory Results - last 24 hr 05/17/24 05/17/24 17:33 21:35 MCV 89.9 MCH 31.0 MCHC 34.5 RDW 12.1 Plt Count 282 MPV 10.4 Immature Gran % (Auto) 0.7 H Neut % (Auto) 88.2 H Lymph % (Auto) 3.7 L [place] % (Auto) 7.3 Eos % (Auto) 0.0 Baso % (Auto) 0.1 Lymph # (Auto) 0.7 L [place] # (Auto) 1.5 H Eos # (Auto) 0.0 Baso # (Auto) 0.0 Abs Immat Gran (auto) 0.15 H Absolute Neuts (auto) 17.8 H Absolute Nucleated RBC 0.000 Nucleated RBC % (auto) 0.0 Anion Gap 11 L Estim Creat Clear Calc 57.8 Estimated GFR > 60 Random Glucose 109 Calcium 10.1 Magnesium 1.8 Total Bilirubin 1.0 AST 50 H ALT 52 H Alkaline Phosphatase 202 H Total Protein 6.6 Albumin 3.6 Lipase 26 C. difficile Tox B Gene POSITIVE A* C. difficile Toxin A&B Positive A* C. difficile Interpret SEE NOTE Influenza Type A (PCR) NEGATIVE Influenza Type B (PCR) NEGATIVE RSV RNA Qual (PCR) NEGATIVE SARS-CoV-2 RNA (RT-PCR) NEGATIVE Assessment and Plan (1) C. difficile diarrhea: Status: Acute Plan 74-year-old female with a PMH significant for?HTN, GERD, and seasonal affective disorder who presents to the ED with?severe diarrhea and abdominal cramping x4 days. Pt will be admitted to the hospital for treatment and further evaluation of intractable abdominal pain and diarrhea concerning for acute proctitis in the setting of C diff infection. C diff diarrhea, severe, initial encounter vancomycin 125 mg q.6 p.o. started 05/16 may need GI if not improving ID consult Transaminitis Likely secondary to above HTN Continue doxazosin, hydralazine, and losartan GERD Continue PPI Full Code DVT Prophylaxis: Lovenox Pt will require a hospitalization of at least two nights for treatment of?intractable abdominal pain and diarrhea concerning for acute proctitis in the setting of C diff infection. Quality Stroke Does the patient have a stroke diagnosis?: No VTE Prior VTE?: No VTE Risk Level:: Medical - moderate - high VTE Device Contraindication: Treatment Not Indicated VTE Drug Contraindication: N/A - Med Ordered
[2024-05-18] MEDS: 0.9 % Sodium Chloride Flush 3 ML SYRINGE IVFLUSH ×2 (08:28→16:25)
[2024-05-18 09:50] LABS: Adenovirus F 40/41 Not Detected (Not Detect.); Astrovirus Not Detected (Not Detect.); Campylobacter Not Detected (Not Detect.); Cryptosporidium Not Detected (Not Detect.); Cyclospora cayetanensis Not Detected (Not Detect.); E. coli EAEC Not Detected (Not Detect.); E. coli EPEC Not Detected (Not Detect.); E. coli ETEC Not Detected (Not Detect.); E. coli STEC Not Detected (Not Detect.); Entamoeba histolytica Not Detected (Not Detect.); Giardia lamblia Not Detected (Not Detect.); Norovirus GI/GII Not Detected (Not Detect.); Plesiomonas shigelloides Not Detected (Not Detect.); Rotavirus A Not Detected (Not Detect.); Salmonella Not Detected (Not Detect.); Sapovirus Not Detected (Not Detect.); Shigella sp./EIEC Not Detected (Not Detect.); Vibrio Not Detected (Not Detect.); Vibrio Cholerae Not Detected (Not Detect.); Yersinia enterocolitica Not Detected (Not Detect.)
--- NOTE | 2024-05-18 10:16 | PHA.MEDREC ---
Addendum entered by Tracy Odom RPh 05/18/24 10:28: reviewed by [facility]. Original Note: Pharmacy Consult ? Medication Reconciliation Pharmacy has completed the medication reconciliation. Spoke with patient to confirm meds, she had a list from home. She also takes apple cider vinegar gummies once daily. She does not take hydroxyzine or blood thinners at home. Patient last took her day time meds Saturday 05/13.
--- NOTE | 2024-05-18 10:18 | MHC.CM.PN ---
PT LIVES ALONE IS INDEPENDENT HAD NO PREVIOUS SERVICES PT MAY NEED A RIDE HOME WHN DCD DC PLAN HOME N/S
[2024-05-18 11:05] VITALS: BP 108/43; PULSE 75; RESP 18; TEMP 37; O2SAT 95
[2024-05-18] MEDS: Ascorbic Acid 500 MG TABLET 1000 MG PO (11:15)
--- NOTE | 2024-05-18 11:15 | PC.NURSE ---
David held per d/t low BP 108/48
[2024-05-18 20:00] VITALS: BP 154/69; PULSE 68; RESP 18; TEMP 36.8; O2SAT 97
--- NOTE | 2024-05-18 20:00 | MHC.EDTECH ---
This tech took over care of pt at 1900,rounded and introduced self to pt, vitals taken, patient got up to commode with minimal assist,urinated a large amount,pt appears comfortable call gaxiola in reach
[2024-05-18 21:09] VITALS: BP 149/69
[2024-05-18] MEDS: Losartan Potassium 50 MG TABLET PO (21:09)
[2024-05-18] MEDS: Doxazosin Mesylate 2 MG TABLET 8 MG PO (21:09)
[2024-05-18] MEDS: Ibuprofen 400 MG TABLET PO (21:09)
[2024-05-18 23:30] LABS: Appearance Urine Clear; Color Urine Yellow; Glucose Urine UA Negative (Negative); Leukocyte Esterase Urine Moderate (2+) (Negative); Nitrite Urine Negative (Negative); UMIC TRIGGER UACC YES; Urine Blood Negative (Negative); Urine Ketones Negative (Negative); Urine Protein Trace mg/dL (Neg-Trace)
[2024-05-18 23:33] LABS: Bacteria Urine None Seen (None Seen); Hyaline Casts Urine 0-2 /LPF (0-2); RBC Urine 0-2 /HPF (0-2); UACC Culture Trigger YES
[2024-05-19] VITALS (7 sets, daily range): BP systolic 112–180; BP diastolic 49–78; PULSE 61–66; RESP 14–18; TEMP 36.5–37; O2SAT 96–98; BMI 35.0
[2024-05-19] MEDS: Omeprazole 20 MG CAPSULE.DR PO (05:31)
[2024-05-19] MEDS: vancomycin HCL 125 MG CAPSULE PO ×4 (05:31→23:45)
[2024-05-19] MEDS: Lactated Ringers 1,000 ML 100 ML IVCONT ×2 (09:54→20:26)
[2024-05-19] MEDS: Losartan Potassium 50 MG TABLET 100 MG PO (09:55)
[2024-05-19] MEDS: Ascorbic Acid 500 MG TABLET 1000 MG PO (09:55)
[2024-05-19] MEDS: Pyridoxine HCl (Vitamin B6) 50 MG TABLET 100 MG PO (09:56)
--- NOTE | 2024-05-19 11:46 | P.PNIM_ITS ---
Subjective Subjective Date of Service: 05/19/24 Interval History: Diaarhea is better, none this morning but feels week Physical Exam 2 Vital Signs: Vital Signs: Last Vital Signs Temp 98.2 F 05/19/24 09:54 Pulse 61 05/19/24 09:54 Resp 16 05/19/24 09:54 BP 136/62 05/19/24 09:54 Pulse Ox 96 05/19/24 09:54 O2 Del Method Room Air 05/19/24 09:54 BMI result Body Mass Index 35.0 Const: Other: General: AO X 3, no acute distress Resp: CTA bilateral CVS: S1,S2,RRR GI: +BS, , slight distention and tenderness Skin: No rash Neuro: motor grossly intact Psych: appropriate affect Objective Data Active Medications Acetaminophen (Acetaminophen 325 Mg Tablet) 650 mg PO Q6H PRN PRN Reason: Pain, Mild 1-3,fever,headache Last Admin: 05/18/24 09:07 Dose: 650 mg Documented By: KAY Al Hydroxide/Mg Hydroxide (Magnesium Hydrox/Alum Hydrox 30 Ml Oral.Susp) 30 ml PO Q4H PRN PRN Reason: Heartburn Ascorbic Acid (Ascorbic Acid 500 Mg Tablet) 1,000 mg PO DAILY TAMELA Last Admin: 05/19/24 09:55 Dose: 1,000 mg Documented By: JAG Calcium Carbonate (Calcium Carbonate 750 Mg Tab.Chew) 750 mg PO Q4H PRN PRN Reason: Heartburn Doxazosin Mesylate (Doxazosin Mesylate 2 Mg Tablet) 8 mg PO BEDTIME TAMELA; Protocol Last Admin: 05/18/24 21:09 Dose: 8 mg Documented By: MIN Enoxaparin Sodium (Enoxaparin Sodium 40 Mg/0.4 Ml Syringe) 40 mg SUBCUT Q24H TAMELA Last Admin: 05/18/24 21:09 Dose: 40 mg Documented By: MIN Lactated Ringer's (Lr) 1,000 mls @ 100 mls/hr IVCONT .Q10H TAMELA Last Admin: 05/19/24 09:54 Dose: 100 mls/hr Documented By: JAG Losartan Potassium (Losartan Potassium 50 Mg Tablet) 50 mg PO BEDTIME TAMELA; Protocol Last Admin: 05/18/24 21:09 Dose: 50 mg Documented By: MIN Losartan Potassium (Losartan Potassium 50 Mg Tablet) 100 mg PO DAILY@0900 [facility]; Protocol Last Admin: 05/19/24 09:55 Dose: 100 mg Documented By: JAG Magnesium Hydroxide (Milk Of Magnesia 30 Ml Oral.Susp) 30 ml PO DAILY PRN PRN Reason: Constipation Melatonin (Melatonin 3 Mg Tablet) 6 mg PO BEDTIME PRN PRN Reason: Insomnia Omeprazole (Omeprazole 20 Mg Capsule.Dr) 20 mg PO DAILY@0630 [facility] Last Admin: 05/19/24 05:31 Dose: 20 mg Documented By: MIN Pyridoxine HCl (Pyridoxine Hcl (Vitamin B6) 50 Mg Tablet) 100 mg PO DAILY [facility] Last Admin: 05/19/24 09:56 Dose: 100 mg Documented By: JAG Sodium Chloride (0.9 % Sodium Chloride Flush 3 Ml Syringe) 3 ml IVFLUSH QSHIFT [facility] Last Admin: 05/19/24 09:58 Dose: Not Given Documented By: JAG Non-Admin Reason: IV Running Vancomycin HCl (Vancomycin Hcl 125 Mg Capsule) 125 mg PO Q6H [facility] Last Admin: 05/19/24 09:55 Dose: 125 mg Documented By: JAG Labs 05/17/24 17:33 05/17/24 17:33 Labs: Laboratory Results - last 24 hr 05/18/24 20:11 Urine Color Yellow Urine Appearance Clear Urine pH 6.0 Ur Specific [place] 1.010 Urine Protein Trace Urine Glucose (UA) Negative Urine Ketones Negative Urine Blood Negative Urine Nitrite Negative Ur Leukocyte Esterase Moderate (2+) H Urine RBC 0-2 Urine WBC 11-20 H Ur Squamous Epith Cells 3-5 Urine Bacteria None Seen Hyaline Casts 0-2 Assessment and Plan (1) C. difficile diarrhea: Status: Acute Plan 74-year-old female with a PMH significant for?HTN, GERD, and seasonal affective disorder who presents to the ED with?severe diarrhea and abdominal cramping x4 days. Pt will be admitted to the hospital for treatment and further evaluation of intractable abdominal pain and diarrhea concerning for acute proctitis in the setting of C diff infection. C diff diarrhea, severe, initial encounter, diarrhea is better but feeling weak vancomycin 125 mg q.6 p.o. started 05/16, treate for 10 days may need GI if not improving Transaminitis Likely secondary to above HTN Continue doxazosin, hydralazine, and losartan GERD Continue PPI Full Code DVT Prophylaxis: Lovenox PT eval Pt will require a hospitalization of at least two nights for treatment of?intractable abdominal pain and diarrhea concerning for acute proctitis in the setting of C diff infection. Quality Stroke Does the patient have a stroke diagnosis?: No VTE Prior VTE?: No VTE Risk Level:: Medical - moderate - high VTE Device Contraindication: Treatment Not Indicated VTE Drug Contraindication: N/A - Med Ordered
[2024-05-19 12:17] LABS: Hematocrit 31.8 % (37.0-47.0); Hemoglobin 10.6 g/dl (12.0-16.0); Mean Corpuscular HGB Conc 33.3 g/dl (31.0-35.0); Mean Corpuscular Volume 90.1 fL (80.0-98.0); Platelet Count 201 X10*3/uL (160-400); Red Blood Count 3.53 X10*6/uL (4.20-5.50); Red Cell Distribution Width 12.1 % (11.0-16.0); White Blood Count 13.9 X10*3/uL (4.8-10.8)
--- NOTE | 2024-05-19 12:27 | PC.NURSE ---
pt complains of 6/10 lower abdominal pain with pressure, as well as diarrhea. MD Rice notified via Smart Panel connect
[2024-05-19 12:32] LABS: Anion Gap 13 (12-20); Blood Urea Nitrogen 8 mg/dL (9-16); Calcium 9.9 mg/dL (8.4-10.2); Carbon Dioxide 22 mmol/L (22-29); Chloride 108 mmol/L (96-108); Creatinine Clr Calc Pharmacy 78.2; Estimated Glomerular Filt Rate > 60; Glucose Random 93 mg/dL (60-115); Potassium 3.7 mmol/L (3.3-5.1); Sodium 139 mmol/L (135-145)
--- NOTE | 2024-05-19 13:37 | PC.NURSE ---
contacted re: PRN pain medications, no new orders at this time
[2024-05-19] MEDS: Losartan Potassium 50 MG TABLET PO (18:44)
[2024-05-19] MEDS: Enoxaparin Sodium 40 MG/0.4 ML SYRINGE SUBCUT (20:26)
[2024-05-19] MEDS: Doxazosin Mesylate 2 MG TABLET 8 MG PO (20:26)
[2024-05-19] MEDS: 0.9 % Sodium Chloride Flush 3 ML SYRINGE IVFLUSH (20:27)
[2024-05-20 04:00] VITALS: BP 152/68; PULSE 65; RESP 16; TEMP 36.5; O2SAT 96
[2024-05-20] MEDS: vancomycin HCL 125 MG CAPSULE PO ×4 (05:39→22:14)
[2024-05-20] MEDS: Omeprazole 20 MG CAPSULE.DR PO (05:39)
[2024-05-20 06:22] LABS: Hemoglobin 9.8 g/dl (12.0-16.0); Mean Corpuscular HGB Conc 33.8 g/dl (31.0-35.0); Mean Corpuscular Hemoglobin 30.1 pg (27.0-33.0); Mean Platelet Volume 10.6 fL (9.4-12.3); Platelet Count 302 X10*3/uL (160-400); Red Blood Count 3.26 X10*6/uL (4.20-5.50); Red Cell Distribution Width 11.9 % (11.0-16.0); White Blood Count 13.1 X10*3/uL (4.8-10.8)
[2024-05-20 06:37] LABS: Anion Gap 11 (12-20); Blood Urea Nitrogen 5 mg/dL (9-16); Calcium 9.6 mg/dL (8.4-10.2); Carbon Dioxide 25 mmol/L (22-29); Chloride 108 mmol/L (96-108); Creatinine Clr Calc Pharmacy 74.8; Estimated Glomerular Filt Rate > 60; Glucose Random 109 mg/dL (60-115); Potassium 3.2 mmol/L (3.3-5.1); Sodium 141 mmol/L (135-145)
[2024-05-20 07:27] VITALS: BP 147/67; PULSE 60; RESP 18; TEMP 36.8; O2SAT 96
[2024-05-20] MEDS: Pyridoxine HCl (Vitamin B6) 50 MG TABLET 100 MG PO (08:02)
[2024-05-20] MEDS: Ascorbic Acid 500 MG TABLET 1000 MG PO (08:02)
[2024-05-20] MEDS: Losartan Potassium 50 MG TABLET 100 MG PO (08:02)
--- NOTE | 2024-05-20 09:08 | PM.DS ---
DS: Providers Provider Date of Service: 05/20/24 Date of admission: 05/17/24 21:22 Date of discharge: 05/20/24 Primary care physician: Noe Peter MD Consults: 05/18/24 02:23 Consult to Infectious Diseases Routine Consulting Provider: [facility] [place] [facility] Reason for consultation: cdiff DS: Diagnosis Discharge Diagnosis (1) C. difficile diarrhea: Status: Acute DS: Summary Hospital Course Hospital Course: Chief Complaint: Abdominal pain Pt is a 74-year-old female with a PMH significant for?HTN, GERD, and seasonal affective disorder who presents to the ED with?severe diarrhea and abdominal cramping x4 days. Pt reports symptoms began on Sunday night when she experienced severe abdominal cramping, fever, chills. Later that night pt began having intractable and rapid diarrhea that was ?like [place]?. Measured fever as high as 102 at home. Pt reports took Tylenol, Imodium, and drank water and Gatorade. Attempted to eat 1 cracker but almost immediately experienced nausea. Has otherwise been unable to tolerate solid food. Pt reports has been feeling weak and fatigued. Notes that fever broke yesterday. Denies chest pain/pressure, palpitations. Denies shortness or breath or difficulty breathing. States has lost 5 lb since diarrhea began, but no unintended weight loss prior to that. Of note, pt reports recently had a 5 day course of amoxicillin for a dental procedure 3-4 weeks ago. In the ED pt with soft BP as low as 95/49, vitals otherwise stable and WNL. Labs were significant for leukocytosis of 20.2, H&H 11.7/33.9, AST 50, ALT 52, and alk-phos 202. GI panel pending. C diff gene positive, toxin a and B still pending. Tested negative for flu, COVID, and RSV. CT?of abdomen and pelvis found pronounced abnormal thickening of rectum with significant surrounding stranding, likely proctitis but malignancy not excluded. Pt was treated with IVF and Zosyn. Pt will be admitted to the hospital for treatment and further evaluation of intractable abdominal pain and diarrhea concerning for acute proctitis in the setting of C diff infection. Hospital course 74-year-old female with a PMH significant for?HTN, GERD, and seasonal affective disorder who presents to the ED with?severe diarrhea and abdominal cramping x4 days. Pt will be admitted to the hospital for treatment and further evaluation of intractable abdominal pain and diarrhea concerning for acute proctitis in the setting of C diff infection. C diff diarrhea and colitis, initial encounter, diarrhea is better, wbc has trended down, pain is better, She has been treated with Vancomcyin orally vancomycin 125 mg q.6 p.o. started 05/16, treate for 10 days. Patient has been feeling weak and seen by PT and recommended for home services, noted to have mild acute hypokalemia repleted was likely due to GI loss. Transaminitis Likely secondary to above, repeat labs improved. HTN Continue doxazosin, hydralazine, and losartan GERD Continue PPI Time Attestation Discharge Coordination Time (in mins): 45 Quality: Safe Use of Opioids Does Pt have an Active Cancer Diagnosis on the Problem List?: No Quality: Stroke Does the patient have a stroke diagnosis?: No Physical Exam Vital Signs: Vital Signs: Last Vital Signs Temp 98.3 F 05/20/24 07:27 Pulse 60 05/20/24 07:27 Resp 18 05/20/24 07:27 BP 147/67 H 05/20/24 07:27 Pulse Ox 96 05/20/24 07:27 O2 Del Method Room Air 05/20/24 07:27 BMI result Body Mass Index 35.0 Const: Other: General: AO X 3, no acute distress Resp: CTA bilateral CVS: S1,S2,RRR GI: +BS, NT, no distention Skin: No rash Neuro: motor grossly intact Psych: appropriate affect DS: Data Data Completed and Pending Labs on day of discharge: Laboratory Results - last 24 hr 05/19/24 05/20/24 12:11 05:31 WBC 13.9 H 13.1 H RBC 3.53 L 3.26 L Hgb 10.6 L 9.8 L Hct 31.8 L 29.0 L MCV 90.1 89.0 MCH 30.0 30.1 MCHC 33.3 33.8 RDW 12.1 11.9 Plt Count 201 D 302 D MPV 11.0 10.6 Absolute Nucleated RBC 0.000 0.000 Nucleated RBC % (auto) 0.0 0.0 Sodium 139 141 Potassium 3.7 3.2 L Chloride 108 108 Carbon Dioxide 22 25 Anion Gap 13 11 L BUN 8 L 5 L Creatinine 0.65 0.68 Estim Creat Clear Calc 78.2 74.8 Estimated GFR > 60 > 60 Random Glucose 93 109 Calcium 9.9 9.6 Discharge Plan Discharge Anticipated Discharge Date/Time: 05/20/24 09:06 Patient Disposition: Home Health Service Discharge Diagnosis: Cdif, proctitis Referrals: maría [Other] - 1 Week Noe Peter MD [Primary Care Provider] - 1 Week Discharge Medications: New vancomycin 125 mg Capsule 125 mg PO Q6H Qty: 24 0RF Continued acetaminophen 500 mg Tablet 1,000 mg PO BID PRN (Reason: Pain) omeprazole 20 mg capsule,delayed release(DR/EC) 20 mg PO DAILY@0630 losartan 100 mg tablet 100 mg PO DAILY@0900 doxazosin 4 mg tablet 8 mg PO BEDTIME magnesium 250 mg tablet 500 mg PO BEDTIME Patient Comments: citrate hydralazine 50 mg tablet 50 mg PO TID ascorbic acid (vitamin C) 500 mg capsule 1,000 mg PO DAILY folic acid 800 mcg tablet 0.8 mg PO DAILY pyridoxine (vitamin B6) 100 mg tablet 100 mg PO DAILY losartan 50 mg tablet 50 mg PO BEDTIME ibuprofen 800 mg tablet 800 mg PO DAILY PRN (Reason: Pain) Discharge Orders: Discharge Order (Routine); Ordered 05/21/24 Ordered By: Sammi Muñiz Diet: Advance to usual diet Activity on Discharge: As tolerated Stand Alone Forms: Patient Portal Discharge page Print Language: Pashto Care Plan Goals: recovery from cdif colitis Health Concerns: c dif colitis, diarrhea Plan of Treatment: take Vancomycin as recommended and follow up with your doctor in a week Assessment: see above Discharge Date/Time: 05/21/24 11:31
[2024-05-20] MEDS: Potassium Chloride Packet 20 MEQ PACKET 40 MEQ PO (09:42)
[2024-05-20] MEDS: Acetaminophen 325 MG TABLET 650 MG PO (11:08)
[2024-05-20 12:00] VITALS: BP 161/69; PULSE 58; RESP 16; TEMP 36.7; O2SAT 95
--- NOTE | 2024-05-20 13:05 | P.PNIM_ITS ---
Subjective Subjective Date of Service: 05/20/24 Interval History: Diaarhea is better, none this morning but feels week, no fever and overall feels beter Physical Exam 2 Vital Signs: Vital Signs: Last Vital Signs Temp 98.1 F 05/20/24 12:00 Pulse 58 05/20/24 12:00 Resp 16 05/20/24 12:00 BP 161/69 H 05/20/24 12:00 Pulse Ox 95 05/20/24 12:00 O2 Del Method Room Air 05/20/24 12:00 BMI result Body Mass Index 35.0 Const: Other: General: AO X 3, no acute distress Resp: CTA bilateral CVS: S1,S2,RRR GI: +BS, NT, no distention Skin: No rash Neuro: motor grossly intact Psych: appropriate affect Objective Data Active Medications Acetaminophen (Acetaminophen 325 Mg Tablet) 650 mg PO Q6H PRN PRN Reason: Pain, Mild 1-3,fever,headache Last Admin: 05/20/24 11:08 Dose: 650 mg Documented By: PAYAL Al Hydroxide/Mg Hydroxide (Magnesium Hydrox/Alum Hydrox 30 Ml Oral.Susp) 30 ml PO Q4H PRN PRN Reason: Heartburn Ascorbic Acid (Ascorbic Acid 500 Mg Tablet) 1,000 mg PO DAILY TAMELA Last Admin: 05/20/24 08:02 Dose: 1,000 mg Documented By: PAYAL Calcium Carbonate (Calcium Carbonate 750 Mg Tab.Chew) 750 mg PO Q4H PRN PRN Reason: Heartburn Doxazosin Mesylate (Doxazosin Mesylate 2 Mg Tablet) 8 mg PO BEDTIME TAMELA; Protocol Last Admin: 05/19/24 20:26 Dose: 8 mg Documented By: MALKA Enoxaparin Sodium (Enoxaparin Sodium 40 Mg/0.4 Ml Syringe) 40 mg SUBCUT Q24H TAMELA Last Admin: 05/19/24 20:26 Dose: 40 mg Documented By: MALKA Losartan Potassium (Losartan Potassium 50 Mg Tablet) 50 mg PO BEDTIME TAMEAL; Protocol Last Admin: 05/19/24 18:44 Dose: 50 mg Documented By: FILOMENA Comments: given early per Dr. Muñiz Losartan Potassium (Losartan Potassium 50 Mg Tablet) 100 mg PO DAILY@0900 [facility]; Protocol Last Admin: 05/20/24 08:02 Dose: 100 mg Documented By: PAYAL Magnesium Hydroxide (Milk Of Magnesia 30 Ml Oral.Susp) 30 ml PO DAILY PRN PRN Reason: Constipation Melatonin (Melatonin 3 Mg Tablet) 6 mg PO BEDTIME PRN PRN Reason: Insomnia Omeprazole (Omeprazole 20 Mg Capsule.Dr) 20 mg PO DAILY@0630 [facility] Last Admin: 05/20/24 05:39 Dose: 20 mg Documented By: MALKA Oxycodone HCl (Oxycodone Hcl Immed Release 5 Mg Tablet) 5 mg PO Q6H PRN PRN Reason: Pain, Severe (Pain Scale 7-10) Pyridoxine HCl (Pyridoxine Hcl (Vitamin B6) 50 Mg Tablet) 100 mg PO DAILY [facility] Last Admin: 05/20/24 08:02 Dose: 100 mg Documented By: PAYAL Sodium Chloride (0.9 % Sodium Chloride Flush 3 Ml Syringe) 3 ml IVFLUSH QSHIFT [facility] Last Admin: 05/20/24 08:03 Dose: Not Given Documented By: PAYAL Non-Admin Reason: IV Running Vancomycin HCl (Vancomycin Hcl 125 Mg Capsule) 125 mg PO Q6H [facility] Last Admin: 05/20/24 11:05 Dose: 125 mg Documented By: PAYAL Labs 05/20/24 05:31 05/20/24 05:31 Labs: Laboratory Results - last 24 hr 05/20/24 05:31 MCV 89.0 MCH 30.1 MCHC 33.8 RDW 11.9 Plt Count 302 D MPV 10.6 Absolute Nucleated RBC 0.000 Nucleated RBC % (auto) 0.0 Anion Gap 11 L Estim Creat Clear Calc 74.8 Estimated GFR > 60 Random Glucose 109 Calcium 9.6 Microbiology Microbiology Results: Microbiology 05/18/24 Unknown Urine Culture - Final Urine clean catch - Clean Catch Midstream No growth. Assessment and Plan (1) C. difficile diarrhea: Status: Acute Plan 74-year-old female with a PMH significant for?HTN, GERD, and seasonal affective disorder who presents to the ED with?severe diarrhea and abdominal cramping x4 days. Pt will be admitted to the hospital for treatment and further evaluation of intractable abdominal pain and diarrhea concerning for acute proctitis in the setting of C diff infection. C diff diarrhea, severe, initial encounter, diarrhea is better but feeling weak vancomycin 125 mg q.6 p.o. started 05/16, treate for 10 days to 14 days She is doing better, advance diet to regular Transaminitis Likely secondary to above HTN Continue doxazosin, hydralazine, and losartan GERD Continue PPI Full Code DVT Prophylaxis: Lovenox PT eval Pt will require a hospitalization of at least two nights for treatment of?intractable abdominal pain and diarrhea concerning for acute proctitis in the setting of C diff infection. Quality Stroke Does the patient have a stroke diagnosis?: No VTE Prior VTE?: No VTE Risk Level:: Medical - moderate - high VTE Device Contraindication: Treatment Not Indicated VTE Drug Contraindication: N/A - Med Ordered
[2024-05-20 15:44] VITALS: BP 152/72; PULSE 62; RESP 20; TEMP 36.2; O2SAT 96
[2024-05-20 16:18] VITALS: BP 152/72; PULSE 62; O2SAT 96
[2024-05-20] MEDS: 0.9 % Sodium Chloride Flush 3 ML SYRINGE IVFLUSH ×2 (16:38→20:44)
[2024-05-20 19:43] VITALS: BP 150/68; PULSE 69; RESP 20; TEMP 36.7; O2SAT 95
[2024-05-20] MEDS: Doxazosin Mesylate 2 MG TABLET 8 MG PO (20:42)
[2024-05-20] MEDS: Losartan Potassium 50 MG TABLET PO (20:42)
[2024-05-20] MEDS: Enoxaparin Sodium 40 MG/0.4 ML SYRINGE SUBCUT (20:42)
--- NOTE | 2024-05-20 23:11 | W.PM.IDCN ---
History of Present Illness Data of Consult Service Date: 05/20/24 Requesting physician: Michael Rice Primary Care Provider: Noe Peter MD HPI Reason for consult: diarrhea,cdiff She presents with watery explosive diarrhea for four days. She has positive Cdiff toxin and PCR. She has been on antibiotics intermittently from December through March 2024 to protect her knee from infection she reports while getting dental work. 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 She has leukocytosis to 20,000. Review of Systems Review of Systems: Yes all other systems are reviewed and are negative [facility] Past Medical History Medical History Seasonal affective disorder GERD (gastroesophageal reflux disease) Essential hypertension Family History Family History Mother Lung cancer Brain aneurysm Angina pectoris Father No problems noted. Sister AML (acute myeloblastic leukemia) Sister Heart disease Lung disease Family history: reviewed and not pertinent Surgical History Surgical History History of breast surgery Hx of cholecystectomy History of hysterectomy History of abdominal surgery Social History Social History Household Members: None Housing: Apartment Housing Other:: 20 stairs. No elevator Do you presently have visiting nurse or other home services: No Alcohol intake: current Alcohol intake frequency: does not drink Patient Tobacco Use Status: Never used Tobacco service: No Meds Allergies Allergy/AdvReac Type Severity Reaction Status Date / Time aspirin Allergy Intermediate Unknown Verified 05/17/24 17:19 doxycycline Allergy Intermediate Unknown Verified 05/17/24 17:19 levofloxacin Allergy Intermediate Unknown Verified 05/17/24 17:19 tramadol Allergy Intermediate Unknown Verified 05/17/24 17:19 cefadroxil Allergy Mild Unknown Verified 05/17/24 17:19 diltiazem Allergy Mild Unknown Verified 05/17/24 17:19 gabapentin Allergy Mild Unknown Verified 05/17/24 17:19 metronidazole Allergy Mild Unknown Verified 05/17/24 17:19 nifedipine Allergy Mild Unknown Verified 05/17/24 17:19 spironolactone Allergy Mild Unknown Verified 05/17/24 17:19 hydrochlorothiazide Allergy Unknown Verified 05/17/24 17:19 statins AdvReac Mild Unknown Uncoded 07/05/22 16:01 Active Medications: Current Medications Acetaminophen (Acetaminophen 325 Mg Tablet) 650 mg PO Q6H PRN PRN Reason: Pain, Mild 1-3,fever,headache Last Admin: 05/20/24 11:08 Dose: 650 mg Al Hydroxide/Mg Hydroxide (Magnesium Hydrox/Alum Hydrox 30 Ml Oral.Susp) 30 ml PO Q4H PRN PRN Reason: Heartburn Ascorbic Acid (Ascorbic Acid 500 Mg Tablet) 1,000 mg PO DAILY [facility] Last Admin: 05/20/24 08:02 Dose: 1,000 mg Calcium Carbonate (Calcium Carbonate 750 Mg Tab.Chew) 750 mg PO Q4H PRN PRN Reason: Heartburn Doxazosin Mesylate (Doxazosin Mesylate 2 Mg Tablet) 8 mg PO BEDTIME [facility]; Protocol Last Admin: 05/20/24 20:42 Dose: 8 mg Enoxaparin Sodium (Enoxaparin Sodium 40 Mg/0.4 Ml Syringe) 40 mg SUBCUT Q24H [facility] Last Admin: 05/20/24 20:42 Dose: 40 mg Losartan Potassium (Losartan Potassium 50 Mg Tablet) 50 mg PO BEDTIME [facility]; Protocol Last Admin: 05/20/24 20:42 Dose: 50 mg Losartan Potassium (Losartan Potassium 50 Mg Tablet) 100 mg PO DAILY@0900 [facility]; Protocol Last Admin: 05/20/24 08:02 Dose: 100 mg Magnesium Hydroxide (Milk Of Magnesia 30 Ml Oral.Susp) 30 ml PO DAILY PRN PRN Reason: Constipation Melatonin (Melatonin 3 Mg Tablet) 6 mg PO BEDTIME PRN PRN Reason: Insomnia Omeprazole (Omeprazole 20 Mg Capsule.Dr) 20 mg PO DAILY@0630 [facility] Last Admin: 05/20/24 05:39 Dose: 20 mg Oxycodone HCl (Oxycodone Hcl Immed Release 5 Mg Tablet) 5 mg PO Q6H PRN PRN Reason: Pain, Severe (Pain Scale 7-10) Pyridoxine HCl (Pyridoxine Hcl (Vitamin B6) 50 Mg Tablet) 100 mg PO DAILY [facility] Last Admin: 05/20/24 08:02 Dose: 100 mg Sodium Chloride (0.9 % Sodium Chloride Flush 3 Ml Syringe) 3 ml IVFLUSH QSHIFT [facility] Last Admin: 05/20/24 20:44 Dose: 3 ml Vancomycin HCl (Vancomycin Hcl 125 Mg Capsule) 125 mg PO Q6H [facility] Last Admin: 05/20/24 22:14 Dose: 125 mg Home Medications ?Medication ?Instructions ?Recorded ?Confirmed ?Last Taken ?Type ascorbic acid (vitamin C) 500 mg 1,000 mg PO DAILY 07/05/22 05/18/24 05/13/24 History capsule doxazosin 4 mg tablet 8 mg PO BEDTIME 07/05/22 05/18/24 Unknown History folic acid 800 mcg tablet 0.8 mg PO DAILY 07/05/22 05/18/24 05/13/24 History hydralazine 50 mg tablet 50 mg PO TID 07/05/22 05/18/24 05/13/24 History ibuprofen 800 mg tablet 800 mg PO DAILY PRN Pain 07/05/22 05/18/24 Unknown History losartan 100 mg tablet 100 mg PO DAILY@0900 07/05/22 05/18/24 05/13/24 History losartan 50 mg tablet 50 mg PO BEDTIME 07/05/22 05/18/24 Unknown History magnesium 250 mg tablet 500 mg PO BEDTIME 07/05/22 05/18/24 Unknown History omeprazole 20 mg capsule,delayed 20 mg PO DAILY@0630 07/05/22 05/18/24 05/13/24 History release pyridoxine (vitamin B6) 100 mg 100 mg PO DAILY 07/05/22 05/18/24 05/13/24 History tablet acetaminophen 500 mg tablet 1,000 mg PO BID PRN Pain 05/18/24 05/18/24 Unknown History Physical Exam Vital Signs: Vital Signs: Last Vital Signs Temp 98.0 F 05/20/24 19:43 Pulse 69 05/20/24 19:43 Resp 20 05/20/24 19:43 BP 150/68 H 05/20/24 19:43 Pulse Ox 95 05/20/24 19:43 O2 Del Method Room Air 05/20/24 19:43 BMI result Body Mass Index 35.0 Const: General: cooperative HEENT: Head: Yes normal to inspection Face and sinus: Yes normal facial exam Mouth: Normal oral and palatal mucosa present Teeth and gingiva: dentition normal Eyes: General: appearance normal, both eyes and all related structures Pupils: Equal, round and reactive pupils present Resp: Effort & Inspection: normal respiratory effort Cardio: Rate: regular rate Rhythm: regular rhythm GI: Palpation (GI): Soft to palpation and nontender : General: Yes no CVA tenderness Back/Spine/Pelvis: Back: no CVA tenderness Skin: General skin exam: no rashes or lesions noted Neuro: General: moves all extremities Cranial nerves: Yes Equal, round and reactive pupils present Extrem: General: Yes normal to inspection Psych: Appearance: grossly normal Results Labs 05/20/24 05:31 05/20/24 05:31 Labs: Short CBC 05/20/24 Range/Units 05:31 WBC 13.1 H (4.8-10.8) X10*3/uL Hgb 9.8 L (12.0-16.0) g/dl Hct 29.0 L (37.0-47.0) % Plt Count 302 D (160-400) X10*3/uL BMP 05/20/24 05:31 Sodium 141 Potassium 3.2 L Chloride 108 Carbon Dioxide 25 BUN 5 L Creatinine 0.68 Calcium 9.6 Microbiology Microbiology Results: Microbiology 05/18/24 Unknown Urine clean catch - Clean Catch Midstream Urine Culture - Final No growth. Assessment and Plan (1) C. difficile diarrhea: Status: Acute Plan She has first episode of Cdifficile. She has been on antibiotics likely risk Would give 10 days po Vancomycin 125 mg qid for 10 days and then every time while on antibiotics and for 48 hours after. Taper Vancomycin if recurs.
[2024-05-21] VITALS: BP 150/83; PULSE 67; RESP 18; TEMP 36.1; O2SAT 96
[2024-05-21 03:33] VITALS: BP 132/57; PULSE 63; RESP 18; TEMP 36.4; O2SAT 94
[2024-05-21] MEDS: vancomycin HCL 125 MG CAPSULE PO ×2 (03:45→10:00)
[2024-05-21] MEDS: Omeprazole 20 MG CAPSULE.DR PO (06:19)
[2024-05-21 07:41] VITALS: BP 168/83; PULSE 67; RESP 18; TEMP 36.7; O2SAT 96
[2024-05-21 08:48] LABS: Alanine Aminotransferase 23 U/L (0-31); Albumin Level 3.4 g/dL (3.5-5.0); Alkaline Phosphatase 164 U/L (39-117); Anion Gap 11 (12-20); Aspartate Amino Transferase 18 U/L (5-31); Bilirubin Direct 0.3 mg/dL (0.0-0.5); Bilirubin Total 0.5 mg/dL (0.0-1.0); Blood Urea Nitrogen 4 mg/dL (9-16); Calcium 9.7 mg/dL (8.4-10.2); Carbon Dioxide 26 mmol/L (22-29); Chloride 107 mmol/L (96-108); Creatinine Clr Calc Pharmacy 72.6; Estimated Glomerular Filt Rate > 60; Glucose Random 108 mg/dL (60-115); Potassium 3.6 mmol/L (3.3-5.1); Sodium 140 mmol/L (135-145); Total Protein 6.3 g/dL (6.5-8.0)
[2024-05-21] MEDS: Pyridoxine HCl (Vitamin B6) 50 MG TABLET 100 MG PO (10:00)
[2024-05-21] MEDS: Ascorbic Acid 500 MG TABLET 1000 MG PO (10:00)
[2024-05-21] MEDS: Losartan Potassium 50 MG TABLET 100 MG PO (10:00)
[2024-05-21] MEDS: 0.9 % Sodium Chloride Flush 3 ML SYRINGE IVFLUSH (10:01)
[2024-05-21] MEDS: Acetaminophen 325 MG TABLET 650 MG PO (10:02)
--- NOTE | 2024-05-21 10:22 | MHC.CM.PN ---
pt dcd home w/hvns
--- NOTE | 2024-05-21 10:23 | W.MHC.F2F ---
Service Date Service Date: 05/21/24 Encounter Date of encounter: 05/21/24 Reasons for Services Signs and symptoms assessed: C diff colitis/weakness/history of hypertension Reason for physical therapy: home safety and mobility Homebound: Leaving the home is medically contraindicated at this time without the asist of a device and/or another person due th the listed conditions above and below. Reason homebound: weakness related to hospital stay Certification: Based on the above findings, I certify that this patient is confined to the home and needs intermittent custodial care, physical therapy and/or speech therapy, or continues to need occupational therapy. The patient is under my care, and I have initiated the establishment of the plan of care. The patient will be followed by a physician who will periodically review the plan of care. Time Spent With Patient Time: Total time managing care of this patient today ____ minutes.
[2024-05-21 11:18] VITALS: BP 158/62; PULSE 78; RESP 20; TEMP 36; O2SAT 95
== END 2024-05-21 11:31 | disposition home health service (06) | DRG 373 ==
LOC: HO.ED 20:17 → HO.EDOVER 22:49 → HO.S3 05-19 16:53
PROVIDERS: Internal Medicine; Physician Assistant Medical; Admitting Provider Student in an Organized Health Care Education/Training Program; Emergency Provider Emergency Medicine Emergency Medical Services; PCP Pediatrics; Visit Provider Hospitalist
DX: A04.72 Enterocolitis due to Clostridium difficile, not specified as recurrent (principal); I10 Essential (primary) hypertension; K21.9 Gastro-esophageal reflux disease without esophagitis; Z20.822 Contact with and (suspected) exposure to COVID-19; Z79.899 Other long term (current) drug therapy
CPT/HCPCS: 0241U; 36415; 74177; 80048; 80053; 80076; 81001; 83690; 83735; 85025; 85027; 87086; 87324; 87493; 87507; 97161; 97530; 99285; J1650; J2543; J7120; Q9967

== ENCOUNTER → 2024-05-17 21:22 | Outpatient (BNV) | payer MEDICARE, SELFPAY | PROVIDERS: Admitting Provider Student in an Organized Health Care Education/Training Program; Emergency Provider Emergency Medicine Emergency Medical Services; PCP Pediatrics; Visit Provider Student in an Organized Health Care Education/Training Program | DX: A04.72 Enterocolitis due to Clostridium difficile, not specified as recurrent (principal) | CPT/HCPCS: 99222; 99232; 99239 ==

== ENCOUNTER → 2024-05-17 21:22 | Outpatient (BNV) | payer MEDICARE, SELFPAY | PROVIDERS: Admitting Provider Student in an Organized Health Care Education/Training Program; Emergency Provider Emergency Medicine Emergency Medical Services; PCP Pediatrics; Visit Provider Internal Medicine | DX: A04.72 Enterocolitis due to Clostridium difficile, not specified as recurrent (principal) | CPT/HCPCS: 99222 ==